=== PATIENT | male | born 1965 | race Caucasian/White ===

== ENCOUNTER → 2017-11-15 | Outpatient (CLI) | payer OTHER ==
[2017-11-15 13:03] LABS: Adenovirus F 40/41 Not Detected (NOT DETECT); Astrovirus Not Detected (NOT DETECT); Campylobacter Sp Not Detected (NOT DETECT); Cryptosporidium Not Detected (NOT DETECT); Cyclospora Cayetanensis Not Detected (NOT DETECT); E. Coli O157 Not Detected (NOT DETECT); Entamoeba Histolytica Not Detected (NOT DETECT); Enteroaggregative E. coli-EAEC Not Detected (NOT DETECT); Enteropathogenic E. coli-EPEC Not Detected (NOT DETECT); Enterotoxigenic E. coli-ETEC Not Detected (NOT DETECT); Plesiomonas Shigelloides Not Detected (NOT DETECT); Rotavirus A Not Detected (NOT DETECT); Salmonella Sp Not Detected (NOT DETECT); Sapovirus Not Detected (NOT DETECT); Shiga Toxin-prod E. coli-STEC Not Detected (NOT DETECT); Shigella/Enteroin E. coli-EIEC Not Detected (NOT DETECT); Vibrio Cholerae Not Detected (NOT DETECT); Vibrio Sp Not Detected (NOT DETECT); Yersinia Enterocolitica Not Detected (NOT DETECT)
[2017-11-15 15:48] LABS: Giardia Lamblia Detected (NOT DETECT)
[2017-11-15 15:49] LABS: Norovirus GI/GII Detected (NOT DETECT)
== END | disposition home or self-care (01) ==
LOC: LAB EV 11:00 → LAB SHORT 11:00
PROVIDERS: Physician Assistant Surgical
DX: A08.4 Viral intestinal infection, unspecified (principal)
CPT/HCPCS: 87507

== ENCOUNTER 2019-07-22 22:09 | Emergency (ER) | payer OTHER ==
[~2019-07-22] VITALS: Ht 149.9 cm; Wt 65.8 kg
== END 2019-07-23 05:28 | disposition home or self-care (01) ==
LOC: ER 22:09
DX: F15.90 Other stimulant use, unspecified, uncomplicated (principal); F17.200 Nicotine dependence, unspecified, uncomplicated
CPT/HCPCS: 99284